=== PATIENT | female | born 1960 | race Two or more races ===

== ENCOUNTER 2021-07-03 05:21 | Day surgery (SDC) | payer MEDICARE, MEDICAID ==
[2021-06-30 14:39] LABS: BASOPHILS # (AUTO) 0.1 X10'3 (0-0.2); BASOPHILS % (AUTO) 1.1 % (0-1); EOSINOPHILS % (AUTO) 0.5 % (0-6); LYMPHOCYTES # (AUTO) 1.8 X10'3 (1.1-4.8); LYMPHOCYTES % (AUTO) 33.3 % (21-51); MEAN CORPUSCULAR HGB CONC 33.7 g/dL (33.0-36.5); MEAN PLATELET VOLUME 8.4 FL (7.4-10.4); MONOCYTES # (AUTO) 0.4 X10'3 (0-0.9); MONOCYTES % (AUTO) 6.6 % (2-12); NEUTROPHILS # (AUTO) 3.2 X10'3 (1.8-7.7); NEUTROPHILS % (AUTO) 58.5 % (42-75); PRE OP HEMATOCRIT 43.7 % (35.0-45.0); PRE OP HEMOGLOBIN 14.7 g/dL (12.0-16.0); PRE OP PLATELET COUNT 261 X10'3 (140-440); RED BLOOD COUNT 4.91 X10'6 (4.20-5.60); RED CELL DISTRIBUTION WIDTH 13.6 % (11.5-14.5)
[2021-06-30 14:55] LABS: ALBUMIN 4.5 G/DL (3.4-5.0); ALBUMIN/GLOBULIN RATIO 1.1 (1.1-1.5); BLOOD UREA NITROGEN 17 MG/DL (7-18); BUN/CREATININE RATIO 18.1 (6.6-38.0); CALCIUM 9.6 MG/DL (8.5-10.1); CHLORIDE 105 MMOL/L (99-107); CREATININE 0.94 MG/DL (0.40-0.90); PRE OP ALT 51 U/L (30-65); PRE OP ANION GAP 10 (8-16); PRE OP AST 35 U/L (10-37); PRE OP BILIRUB, TOTAL 0.4 MG/DL (0.0-1.0); PRE OP GLUCOSE 108 MG/DL (70-104); PRE OP POTASSIUM 3.6 MMOL/L (3.4-5.1); PRE OP SODIUM 141 MMOL/L (135-145); TOTAL PROTEIN 8.7 G/DL (6.4-8.2); eGFR 61 ML/MIN
[~2021-07-03] VITALS: Ht 160 cm; Wt 81.7 kg
[2021-07-03] VITALS (11 sets, daily range): BP systolic 122–139; BP diastolic 69–80
[~2021-07-03 05:21] MED LIST: AMLO5TAB16 PO; ATEN100T PO; IBUP-1986 PO; LOSA1TAB41 PO; METO-384 PO; ringers solution, lacted 1,000 ML IV SCH
[2021-07-03] MEDS ORDERED: DOCUMENT DATE & TIME OF BETA-BLOCKER PO ONE (05:30)
[2021-07-03] MEDS ORDERED: famotidine 20mg tablet PO ONE (05:30)
[2021-07-03] MEDS ORDERED: cefazolin/dext.iso 2gm/50ml IV ONE (05:30)
[2021-07-03] MEDS ORDERED: BUPIVAcaine 0.5% inj/PF 30 ML ONE (06:41)
[2021-07-03] MEDS ORDERED: sevoflurane 250ml liquid IH ONE (07:14)
[2021-07-03] MEDS ORDERED: fentaNYL/PF 50MCG/1 ML 2ML syringe ONE (07:19)
[2021-07-03] MEDS ORDERED: midazolam 1 mg/ML 2ml injection ONE (07:19)
[2021-07-03] MEDS ORDERED: proCHLORperazine 10 MG/2 ml inj IV PRN (08:00)
[2021-07-03] MEDS ORDERED: morphine 4 MG/ML inj SYRINge IV PRN (08:00)
[2021-07-03] MEDS ORDERED: ROPIVAcaine 0.2% (10 MG/5 ML) BOLUS INJECTION INTERSCALE PRN (08:00)
[2021-07-03] MEDS ORDERED: meperidine/PF 25mg/ml syringe IV PRN ×3 (08:00)
[2021-07-03] MEDS ORDERED: ringers solution, lacted 1,000 ML IV SCH (08:00)
[2021-07-03] MEDS ORDERED: ROPIVAcaine 0.2%/PF PUMP/bolus 545 ML INTERSCALE SCH (08:00)
[2021-07-03] MEDS ORDERED: morphine 2 MG/ML inj. syringe IV PRN (08:00)
[2021-07-03] MEDS ORDERED: ondansetron/PF 4mg/2ml inj IV PRN (08:00)
[2021-07-03] MEDS ORDERED: glycopyrrolate 0.2mg/ml inj ONE (08:30)
[2021-07-03] MEDS ORDERED: ondansetron/PF 4mg/2ml inj ONE (08:30)
[2021-07-03] MEDS ORDERED: propofol inj 20 ML IV ONE (08:30)
[2021-07-03] MEDS ORDERED: ePHEDrine 50MG/ML INJ. ONE (08:30)
[2021-07-03] MEDS ORDERED: LIDOcaine 1%/PF 5ML 10 MG/ML VIAL ONE (08:30)
[2021-07-03] MEDS ORDERED: dexamethasone sod phosphate 4mg/ml inj. ONE (08:30)
[2021-07-03] MEDS ORDERED: ROPIVAcaine 0.5% (5mg/ml) 30ml vial ONE (08:30)
[2021-07-03] MEDS ORDERED: ketamine 50mg/5ml syringe ONE (08:31)
--- NOTE | 2021-07-03 09:21 | NUR ---
Received from OR via ron, accompanied by Anesthesiologist Brandon and report given by Anesthesiolgist. VS WNL, sleepy but responsive to questions, 20G LR at 100cc/hr to left wrist. Right shoulder dressed with gauze, wrapped with shoulder sling and abductor immobilizer sling, cold pack in place. Fingers pink and appropriate cap refill.
[2021-07-03] MEDS ORDERED: HYDROcodone/acetaminophen 10/325mg tab PO PRN (09:45)
--- NOTE | 2021-07-03 11:31 | NUR ---
Pt discharged to to vehicle without incident by wheelchair. Pt had all belongings returned to them, IV DC'd, ON-Q ball attached and all DC instructions and demonstrations done with patient and daughter present. Both verbalised understanding. Has pain meds at home.
== END 2021-07-03 11:31 | disposition home or self-care (01) ==
LOC: PAS 05:21
PROVIDERS: ATTEND Orthopaedic Surgery
DX: S46.011A Strain of muscle(s) and tendon(s) of the rotator cuff of right shoulder, initial encounter (principal); M19.011 Primary osteoarthritis, right shoulder; M75.51 Bursitis of right shoulder; I10 Essential (primary) hypertension; G89.18 Other acute postprocedural pain; Z20.822 Contact with and (suspected) exposure to COVID-19; Z79.899 Other long term (current) drug therapy; Z98.890 Other specified postprocedural states; Z72.89 Other problems related to lifestyle; X58.XXXA Exposure to other specified factors, initial encounter; Y93.89 Activity, other specified; Y92.89 Other specified places as the place of occurrence of the external cause; Y99.8 Other external cause status
CPT/HCPCS: 29826; 29827; 36415; 64416; 76942; 80053; 82948; 85025; 87635; 93005; C1713; C9803; J0690; J1100; J2250; J2405; J2704; J2795; J3010; J3490; J7120; S0020; Z7506; Z7508; Z7512; A4565; A4618; A6449; A7000